=== PATIENT | male | born 1995 | race African-American/Black ===

== ENCOUNTER 2022-01-15 14:01 | Outpatient (CLI) | payer OTHER, SELFPAY ==
[2022-01-16 09:07] LABS: Rapid Plasma Reagin Non-Reactive (NonReactive)
== END 2022-01-15 14:02 | disposition home or self-care (01) ==
LOC: ANHGOSHLAB 14:02
PROVIDERS: PCP Family Medicine; Visit Provider Family Medicine
DX: Z72.51 High risk heterosexual behavior (principal); Z86.19 Personal history of other infectious and parasitic diseases
CPT/HCPCS: 36415; 86592; 87491; 87591

== ENCOUNTER 2022-01-23 08:38 | Emergency (ER) | payer OTHER, SELFPAY ==
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
[2022-01-23 08:52] VITALS: BP 119/81; PULSE 69; RESP 16; TEMP 36.6; O2SAT 100
== END 2022-01-23 09:13 | disposition home or self-care (01) ==
PROVIDERS: Emergency Provider Nurse Practitioner Family; PCP Family Medicine
DX: G44.209 Tension-type headache, unspecified, not intractable (principal); V43.52XA Car driver injured in collision with other type car in traffic accident, initial encounter; F17.200 Nicotine dependence, unspecified, uncomplicated
CPT/HCPCS: 99212; G0463

== ENCOUNTER 2022-11-07 11:28 | Outpatient (CLI) | payer OTHER, SELFPAY ==
[2022-11-07 13:37] LABS: Hepatitis B Surface Antigen Negative (Negative)
[2022-11-07 13:43] LABS: HAV RESULT Negative (Negative); Hepatitis B Core IgM Result Negative (Negative)
[2022-11-07 13:55] LABS: Hepatitis C Virus Antibody Negative (Negative)
[2022-11-08 13:20] LABS: Rapid Plasma Reagin Reactive (NonReactive)
[2022-11-13 21:32] LABS: Treponema pallidum Ab FTA ABS Reactive (Nonreactive)
[2022-11-15 08:37] LABS: Reference Lab Test Result Reactive
== END 2022-11-07 11:29 | disposition home or self-care (01) ==
LOC: ANHGOSHLAB 11:29
PROVIDERS: PCP Family Medicine; Visit Provider Family Medicine
DX: Z72.51 High risk heterosexual behavior (principal)
CPT/HCPCS: 36415; 80074; 86592; 86695; 86696; 86780; 87491; 87591